=== PATIENT | female | born 1995 | race Caucasian/White ===

== ENCOUNTER 2019-03-05 14:58 | Observation (INO) ==
[2019-03-05] MEDS ORDERED: NORMAL SALINE 1,000 ML IV ONE (16:48)
[2019-03-05] MEDS ORDERED: PROCHLORPERAZINE EDISYLATE 5 MG/ML VIAL IV ONE (16:48)
[2019-03-05 17:08] LABS: Hematocrit 39.4 % (37.0-47.0); Hemoglobin 13.1 gm/dL (12.5-16.0); Mean Corpuscular Hemoglobin 32.3 pg (27-31); Mean Corpuscular Hgb Conc 33.2 g/dl (32-36); Neutrophil % 77.8 % (42-75.0); Platelet Count 303 K/mm3 (150-450); Red Blood Count 4.06 M/mm3 (4.2-5.4); Red Cell Distribution Width 12.7 % (11.5-14.0); White Blood Count 6.4 K/mm3 (4.0-10.5)
[2019-03-05 17:19] LABS: Albumin * 3.8 gm/dl (3.4-5.0); BUN/Creatinine Ratio 9.5 (9.0-21.6); Bilirubin, Total 0.4 mg/dL (0.0-1.1); Ca. Corrected For Albumin 9.2 mg/dL (8.4-10.2); Calcium * 9.4 mg/dL (7.9-10.9); Total Protein 7.6 gm/dL (6.2-8.2)
[2019-03-05 17:22] LABS: Urine Appearance Cloudy (CLEAR); Urine Bilirubin Negative (NEGATIVE); Urine Color Yellow
[2019-03-05 17:23] LABS: Urine Blood 250 /ul (NEGATIVE); Urine Ketone Negative (NEGATIVE); Urine pH 7.5 pH (5.0-7.0)
[2019-03-05 17:24] LABS: Urine Bacteria 4+; Urine Nitrite Negative (NEGATIVE); Urine Protein 100 mg/dL (NEGATIVE); Urine RBC >50 /hpf (0-5); Urine Urobilinogen Normal (NORMAL); Urine WBC >50 /hpf (0-5)
[2019-03-05 17:29] LABS: Anion Gap 20.7 mmol/L (6.8-13.8); Carbon Dioxide 17.6 mmol/L (24-32.6)
[2019-03-05 17:30] LABS: Potassium 4.3 mmol/L (3.4-4.6)
[2019-03-05] MEDS ORDERED: cefTRIAXone SODIUM 1,000 MG/100 ML BAG IV ONE (17:31)
[2019-03-05] MEDS ORDERED: MORPHINE SULFATE 2 MG/ML DISP.SYRIN IV ONE (17:54)
--- NOTE | 2019-03-05 18:30 | HP ---
Chief Complaint - Chief Complaint Date of Service: 03/05/19 Time of Service: 18:00 Chief Complaint: Nausea, vomiting, abdominal pain and back pain x1 day History of Present Illness: 24-year-old female with a past medical history of spina bifida, scoliosis, kidney failure status post urostomy, hydrocephalus status post LP shunt acute presents from home with complaints of nausea, vomiting, back pain and abdominal pain. She states she had a urostomy placed because because of she had her bladder removed recurrent UTIs. She states she gets a kidney infection every other month. She is found to have an elevated creatinine of 2.6. She states her baseline creatinine is 1.8. Urine is positive for leukocyte esterase and WBC. She will be admitted for pyelonephritis and GIOVANA. 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 Smoking Status Never smoker Have you smoked in the past 12 No months Alcohol Use none Drug Use none No Social History Section defined Review Of Systems (GEN) - Review of Systems Generalized/Overall Review: Absent: Chills, Fever Respiratory: Absent: Shortness of Breath Cardiac: Absent: Chest Pain Abdominal: Present: Nausea, Vomiting, Abdominal Pain Musculoskeletal: Present: Back Pain Misc: All systems neg except as marked Immunizations: IMMUNIZATION HX Immunizations Up to Date Yes History of Influenza Vaccine Yes Hx Pneumococcal Vaccination Yes Allergies/Adverse Reactions: Allergies Allergy/AdvReac Type Severity Reaction Status Date / Time chlorhexidine Allergy Severe Itching Verified 03/05/19 20:42 metoclopramide [From Reglan] Allergy Severe Swelling Verified 03/05/19 20:42 of Tongue latex Allergy Intermediate Other Verified 03/05/19 20:42 aspirin AdvReac Severe Other Verified 03/05/19 20:42 vasoline AdvReac Severe Itching Uncoded 03/05/19 20:42 Home Medications: HOME MEDICATIONS Acetaminophen/Diphenhydramine [Tylenol Pm Ex-Strength Caplet] 2 ea PO HS 03/05/19 [Last Taken Unknown] Amitriptyline HCl [Elavil] 75 mg PO HS 03/05/19 [Last Taken 03/04/19] Calcitriol 0.25 mcg PO DAILY 03/05/19 [Last Taken 03/04/19] Calcium Carbonate [Calcium] 500 mg PO TID 03/05/19 [Last Taken 03/04/19] Cyclobenzaprine HCl 10 mg PO BID 03/05/19 [Last Taken 03/04/19] Famotidine 20 mg PO BID 03/05/19 [Last Taken 03/04/19] Ferrous Sulfate 325 mg PO BID 03/05/19 [Last Taken 03/04/19] Hydrochlorothiazide 12.5 mg PO DAILY 03/05/19 [Last Taken 03/04/19] Melatonin 5 mg PO HS 03/05/19 [Last Taken 03/04/19] Nitrofurantoin Macrocrystal [Nitrofurantoin] 100 mg PO DAILY 03/05/19 [Last Taken 03/04/19] Progesterone, Micronized [Progesterone] 100 mg PO HS 03/05/19 [Last Taken 03/04/19] Promethazine HCl 25 mg PO .Q4H PRN 03/05/19 [Last Taken 03/04/19] Sodium Bicarbonate 1,300 mg PO DAILY 03/05/19 [Last Taken 03/04/19] Topiramate [Topamax] 25 mg PO BID 03/05/19 [Last Taken 03/04/19] diphenhydrAMINE HCL [Benadryl] 50 mg PO HS 03/05/19 [Last Taken 03/04/19] Pantoprazole Sodium 40 mg PO BID 03/06/19 [Last Taken 03/04/19] Exam - Exam Vital Signs: Vital Signs - Last Taken Temp 37.4 C 03/05/19 16:18 Pulse 123 H 03/05/19 16:18 Resp 18 03/05/19 16:18 BP 129/91 H 03/05/19 16:18 Pulse Ox 100 03/05/19 16:18 Constitutional: Present: Alert, Cooperative, Well developed, Well nourished, No distress ENT Exam: Present: hearing grossly normal Eye Exam: bilateral eye: normal inspection, PERRL Neck: Present: supple, trachea midline. Absent: lymphadenopathy (R), lymphadenopathy (L) Back Exam: Present: normal inspection, no vertebral tenderness, CVA tenderness (R), CVA tenderness (L) Respiratory: Present: lungs clear, no respiratory distress, no accessory muscle use, No wheezing. Absent: crackles, rhonchi Cardiovascular/Chest: Present: normal peripheral pulses, regular rate, rhythm, no murmur Peripheral Pulses: dorsalis-pedis (R): 1+, dorsalis-pedis (L): 1+ Abdomen: Present: Normal bowel sounds, soft, tender - Suprapubic Extremity: Present: no pedal edema, other - Right leg brace in place Skin Exam: Present: normal color, warm/dry Neurologic: Present: alert, normal mood/affect Appearance: Present: appropriate appearance, appropriate insight Eye contact: Present: cooperative, good eye contact Thoughts: Present: normal thought pattern, normal mood /affect Diagnostic Studies: Abnormal Lab Results 03/05/19 03/05/19 03/05/19 Range/Units 17:01 17:01 17:05 RBC 4.06 L (4.2-5.4) M/mm3 MCH 32.3 H (27-31) pg Neutrophils % 77.8 H (42-75.0) % Lymphocytes % 17.0 L (20-51) % Basophils % 1.1 H (0.0-1.0) % Lymphocytes # 1.09 L (1.5-3.5) k/mm3 Carbon Dioxide 17.6 L (24-32.6) mmol/L Anion Gap 20.7 H (6.8-13.8) mmol/L BUN 25 H (3-23) mg/dL Creatinine 2.62 H (0.4-1.4) mg/dL Est GFR (Non-Af Amer) 23 L (60-130) mL/min ALT 13 L (19-67) U/L Urine Protein 100 H (NEGATIVE) mg/dL Urine Blood 250 H (NEGATIVE) /ul Prot Sulfosalicylic Acd 4+ H (0) mg/dL Ur Leukocyte Esterase 500 H (NEGATIVE) /ul Urine RBC >50 H (0-5) /hpf Urine WBC >50 H (0-5) /hpf Urine Bacteria 4+ H (NONE) Laboratory Results WBC 6.4 K/mm3 (4.0-10.5) 03/05/19 17:01 RBC 4.06 M/mm3 (4.2-5.4) L 03/05/19 17:01 Hgb 13.1 gm/dL (12.5-16.0) 03/05/19 17:01 Hct 39.4 % (37.0-47.0) 03/05/19 17:01 MCV 97.0 fl (78-100) 03/05/19 17:01 MCH 32.3 pg (27-31) H 03/05/19 17:01 MCHC 33.2 g/dl (32-36) 03/05/19 17:01 RDW 12.7 % (11.5-14.0) 03/05/19 17:01 Plt Count 303 K/mm3 (150-450) 03/05/19 17:01 MPV 10.0 fl (8-12.5) 03/05/19 17:01 Immature Gran % (Auto) 0.20 % (0.001-0.429) 03/05/19 17: Immature Gran # (Auto) 0.01 K/mm3 (0.000-0.0310) 03/05/19 17:01 77.8 % (42-75.0) H 03/05/19 17:01 17.0 % (20-51) L 03/05/19 17:01 3.7 % (0.0-9) 03/05/19 17:01 0.2 % (0.0-3.0) 03/05/19 17:01 1.1 % (0.0-1.0) H 03/05/19 17:01 Nucleated RBC % 0.0 k/mm3 (0-1) 03/05/19 17:01 5.0 K/mm3 (1.3-6.0) 03/05/19 17:01 1.09 k/mm3 (1.5-3.5) L 03/05/19 17:01 0.2 k/mm3 (0.0-1.0) 03/05/19 17:01 0.0 k/mm3 (0.0-0.7) 03/05/19 17:01 Absolute Basophils 0.1 k/mm3 (0.0-0.1) 03/05/19 17:01 Sodium 138 mmol/L (132-142) 03/05/19 17:01 138 mmol/L (130-142) 03/05/19 17:01 Potassium 4.3 mmol/L (3.4-4.6) 03/05/19 17:01 Chloride 104 mmol/L (97-106) 03/05/19 17:01 Carbon Dioxide 17.6 mmol/L (24-32.6) L 03/05/19 17:01 20.7 mmol/L (6.8-13.8) H 03/05/19 17:01 BUN 25 mg/dL (3-23) H 03/05/19 17:01 2.62 mg/dL (0.4-1.4) H 03/05/19 17:01 Est GFR (Non-Af Amer) 23 mL/min (60-130) L 03/05/19 17:01 9.5 (9.0-21.6) 03/05/19 17:01 84 mg/dL (70-110) 03/05/19 17:01 1.1 mmol/L (0.4-2.0) 03/05/19 17:01 Calcium 9.4 mg/dL (7.9-10.9) 03/05/19 17:01 Calcium Adj for Albumin 9.2 mg/dL (8.4-10.2) 03/05/19 17:01 0.4 mg/dL (0.0-1.1) 03/05/19 17:01 AST 29 U/L (0-48) 03/05/19 17:01 ALT 13 U/L (19-67) L 03/05/19 17:01 109 U/L (50-170) 03/05/19 17:01 7.6 gm/dL (6.2-8.2) 03/05/19 17:01 3.8 gm/dl (3.4-5.0) 03/05/19 17:01 229 U/L (73-393) 03/05/19 17:01 Serum HCG, Qual Negative (NEGATIVE) 03/05/19 17:01 Yellow 03/05/19 17:05 Cloudy (CLEAR) 03/05/19 17:05 7.5 pH (5.0-7.0) 03/05/19 17:05 Ur Specific [place] 1.020 SP.GR. (1.005-1.010) 03/05/19 17:05 100 mg/dL (NEGATIVE) H 03/05/19 17:05 Negative mg/dL (NEGATIVE) 03/05/19 17:05 Negative mg/dL (NEGATIVE) 03/05/19 17:05 250 /ul (NEGATIVE) H 03/05/19 17:05 Negative (NEGATIVE) 03/05/19 17:05 Negative mg/dl (NEGATIVE) 03/05/19 17:05 Prot Sulfosalicylic Acd 4+ mg/dL (0) H 03/05/19 17:05 Normal EU/dl (NORMAL) 03/05/19 17:05 Ur Leukocyte Esterase 500 /ul (NEGATIVE) H 03/05/19 17:05 >50 /hpf (0-5) H 03/05/19 17:05 >50 /hpf (0-5) H 03/05/19 17:05 Ur Epithelial Cells None seen /hpf (0-5) 03/05/19 17:05 4+ (NONE) H 03/05/19 17:05 Culture to follow 03/05/19 17:05 Assessment/Plan - Narrative Narrative: 24-year-old female with a past medical history of spina bifida, scoliosis, kidney failure status post urostomy, hydrocephalus status post LP shunt acute presents from home with complaints of nausea, vomiting, back pain and abdominal pain. She states she had a urostomy placed because because of she had her bladder removed recurrent UTIs. She states she gets a kidney infection every other month. She is found to have an elevated creatinine of 2.6. She states her baseline creatinine is 1.8. Urine is positive for leukocyte esterase and WBC. She will be admitted for pyelonephritis and GIOVANA. - Assessment/Plan (1) Pyelonephritis Assessment: Continue ceftriaxone, pain management, and monitor CMP. Follow-up urine culture. Problem: Acute (2) Acute kidney injury superimposed on chronic kidney disease Assessment: Continue with IV fluid hydration, monitor CMP. Problem: Acute
[2019-03-05] MEDS ORDERED: NORMAL SALINE 1,000 ML IV PRN (18:42)
[2019-03-05] MEDS ORDERED: ONDANSETRON HCL/PF 2 MG/ML VIAL IV PRN (18:43)
--- NOTE | 2019-03-05 19:06 | ERNOTE ---
Abdominal HPI - Narrative Date of Service: 03/05/19 - General Chief Complaint: Nausea/Vomiting Time Seen by Provider: 03/05/19 16:42 Source: patient Exam Limitations: no limitations - Immun/Allergies/Home Medications Immunizatons: IMMUNIZATION HX Immunizations Up to Date Yes History of Influenza Vaccine Yes Hx Pneumococcal Vaccination Yes Allergies/Adverse Reactions: Allergies chlorhexidine Allergy (Severe, Verified 03/05/19 16:17) Itching metoclopramide [From Reglan] Allergy (Severe, Verified 03/05/19 16:17) Swelling of Tongue latex Allergy (Intermediate, Verified 03/05/19 16:17) Other aspirin Adverse Reaction (Severe, Verified 03/05/19 16:17) Other vasoline Adverse Reaction (Severe, Uncoded 03/05/19 16:17) Itching - History of Present Illness Narrative: patient presents to the ED for concern of "kidney infection". She relates that since 6am she has vomited 12 times without diarrhea and had feeling of fever with abdominal and bilateral flank pain. She gets this with kidney infections. The pain in her flank bilaterally is severe. Nothing makes it better or worse. 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 No CP or SOB. Decreased urine output today. She normally goes to [place] or the [place] as she lives in [place]. Timing: constant Quality: severe Activities at Onset: none Modifying Factors - (Improves): Present: other - nothing Modifying Factors - (Worsens): Present: vomiting Associated Symptoms: Present: nausea, vomiting. Absent: diarrhea-gross blood, diarrhea-mucous, fever/chills, shortness of breath Prior Abdominal Problems: Present: similar symptoms Prior Treatment: Absent: currently on antibiotics Review of Systems - Review of Systems Constitutional: Absent: fever ENT: Absent: sore throat Respiratory: Absent: shortness of breath Cardiology: Absent: chest pain Gastrointestinal/Abdominal: Present: See HPI All Other Systems: All systems neg except as marked Medical History (Updated 03/05/19 @ 18:36 by Rena Campbell MD) Hydrocephalus Kidney failure Scoliosis Spina bifida Surgical History: Surgical History (Updated 03/05/19 @ 17:04 by Tabby Kohler RN) H/O knee surgery right-ACL, and ligaments History of ankle surgery bilateral History of hip surgery hinge History of urostomy Previous back surgery CLosed gap from Spina bifidia Jd in tibia or fibula 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 Smoking Status Never smoker Have you smoked in the past 12 No months Alcohol Use none Drug Use none No Social History Section defined Physical Exam - Physical Exam General Appearance: Present: alert, no apparent distress Head Exam: Present: normal inspection, no evidence of injury Eye Exam: Normal inspection: bilateral, PERRL: bilateral Ears, Nose, Throat: Present: dry mucous membranes Neck: Present: normal inspection Respiratory: Present: no respiratory distress, normal breath sounds, no accessory muscle use, lungs clear Cardiovascular/Chest: Present: tachycardia Gastrointestinal/Abdominal: Present: normal bowel sounds, soft, other - mild diffuse tenderness, no peritoneal signs\\ Back Exam: Present: CVA tenderness (R), CVA tenderness (L) Extremity Exam: Present: other - brace chronically right leg Neurological Exam: Present: alert, other - spina bifida, no acute motor deficits are noted Skin Exam: Present: normal color, warm/dry Progress - Results and Orders Patient's Lab Results:: I have reviewed the patient's lab results. - Vital Signs Patient's Vital Signs:: I have reviewed the patient's vital signs. Vital Signs: Vital Signs 03/05/19 16:18 Temperature 37.4 C Pulse Rate 123 H Respiratory Rate 18 Blood Pressure 129/91 H O2 Sat by Pulse Oximetry 100 - Progress/Reassessment Chief Complaint: Nausea/Vomiting Progress Note-Subjective: 03/05/19 19:02 IV fluids and IV ABx given. She has GIOVANA here. She thinks her Cr normally runs in the 1.7 range. She had labs at [facility] yesterday but I cannot get ahold of those after several attempts. I have to assume her GIOVANA is from pyelo and dehydration. I spoke to Dr Diaz who saw the patient in the ED and will admit the patient. Departure Clinical Impression: Pyelonephritis, Dehydration, GIOVANA (acute kidney injury), Recurrent vomiting - Departure Disposition: Still a patient Condition: Fair
[2019-03-05] MEDS ORDERED: diphenhydrAMINE HCL 25 MG CAPSULE PO ONE (21:23)
[2019-03-05] MEDS ORDERED: AMITRIPTYLINE HCL 25 MG TABLET PO SCH (21:24)
[2019-03-05] MEDS: HYDROmorphone HCL 1 MG/ML DISP.SYRIN IV PRN (21:40)
[2019-03-06] MEDS: HYDROmorphone HCL 1 MG/ML DISP.SYRIN IV PRN ×4 (01:43→14:18)
[2019-03-06] MEDS: CALCIUM CARBONATE 500 MG TAB.CHEW PO PRN ×2 (02:33→10:30)
[2019-03-06 06:17] LABS: Hematocrit 36.2 % (37.0-47.0); Mean Cell Volume 97.3 fl (78-100); Mean Corpuscular Hemoglobin 32.3 pg (27-31); Mean Corpuscular Hgb Conc 33.1 g/dl (32-36); Mean Platelet Volume 9.8 fl (8-12.5); Neutrophil # 2.5 K/mm3 (1.3-6.0); Neutrophil % 55.5 % (42-75.0); Platelet Count 242 K/mm3 (150-450); Red Blood Count 3.72 M/mm3 (4.2-5.4); Red Cell Distribution Width 12.6 % (11.5-14.0); White Blood Count 4.4 K/mm3 (4.0-10.5)
[2019-03-06 06:31] LABS: Albumin * 3.3 gm/dl (3.4-5.0); Anion Gap 19.3 mmol/L (6.8-13.8); BUN/Creatinine Ratio 9.8 (9.0-21.6); Bilirubin, Total 0.3 mg/dL (0.0-1.1); Ca. Corrected For Albumin 8.5 mg/dL (8.4-10.2); Calcium * 8.3 mg/dL (7.9-10.9); Carbon Dioxide 17.7 mmol/L (24-32.6); Total Protein 6.4 gm/dL (6.2-8.2)
[2019-03-06] MEDS ORDERED: diphenhydrAMINE HCL 25 MG CAPSULE PO ONE (07:30)
[2019-03-06] MEDS ORDERED: POTASSIUM BICARBONATE/CIT AC 25 MEQ TABLET.EFF PO ONE (10:09)
[2019-03-06] MEDS ORDERED: POTASSIUM CHLORIDE 20 MEQ TABLET.SA PO ONE (12:18)
--- NOTE | 2019-03-06 12:58 | DS ---
(1) Pyelonephritis Problem: Acute (2) Acute kidney injury superimposed on chronic kidney disease Problem: Acute (3) Hypokalemia Problem: Acute (4) Dehydration Problem: Resolved (5) Recurrent vomiting Problem: Resolved Description of Stay: 24-year-old female with a past medical history of spina bifida, scoliosis, kidney failure status post urostomy, hydrocephalus status post LP shunt acute presents from home with complaints of nausea, vomiting, back pain and abdominal pain. She states she had a urostomy placed because because of she had her bladder removed recurrent UTIs. She states she gets a kidney infection every other month. She is found to have an elevated creatinine of 2.6. She states her baseline creatinine is 1.8. Urine is positive for leukocyte esterase and WBC. She will be admitted for pyelonephritis and GIOVANA. Her renal function improved with IV fluid hydration. The nausea and vomiting resolved and tolerate diet. Urine culture growing gram-negative bacilli. I will send her home on ciprofloxacin for 6 more days. She also developed hypokalemia and her potassium was repleted. She should obtain a follow-up chemistry with her primary care physician in 1 week. Follow-up with her primary care physician and urologist in 1 week. Procedures Performed: none Results and Findings: Pending Mircobiology Results 03/05/19 16:45 Urine,Clean Catch Urine Culture - Preliminary Gram Negative Bacilli Lab Pending Results 03/05/19 17:01: WBC 6.4, RBC 4.06 L, Hgb 13.1, Hct 39.4, MCV 97.0, MCH 32.3 H, MCHC 33.2, RDW 12.7, Plt Count 303, MPV 10.0, Immature Gran % (Auto) 0.20, Immature Gran # (Auto) 0.01, Neutrophils % 77.8 H, Lymphocytes % 17.0 L, Monocytes % 3.7, Eosinophils % 0.2, Basophils % 1.1 H, Nucleated RBC % 0.0, Neutrophils # 5.0, Lymphocytes # 1.09 L, Monocytes # 0.2, Eosinophils # 0.0, Absolute Basophils 0.1 03/05/19 17:01: Sodium 138, Plasma Sodium 138, Potassium 4.3, Chloride 104, Carbon Dioxide 17.6 L, Anion Gap 20.7 H, BUN 25 H, Creatinine 2.62 H, Est GFR (Non-Af Amer) 23 L, BUN/Creatinine Ratio 9.5, Random Glucose 84, Calcium 9.4, Calcium Adj for Albumin 9.2, Total Bilirubin 0.4, AST 29, ALT 13 L, Alkaline Phosphatase 109, Total Protein 7.6, Albumin 3.8, Lipase 229 03/05/19 17:01: Lactic Acid, Venous 1.1 03/05/19 17:01: Serum HCG, Qual Negative 03/05/19 17:05: Urine Color Yellow, Urine Appearance Cloudy, Urine pH 7.5, Ur Specific [place] 1.020, Urine Protein 100 H, Urine Glucose (UA) Negative, Urine Ketones Negative, Urine Blood 250 H, Urine Nitrate Negative, Urine Bilirubin Negative, Prot Sulfosalicylic Acd 4+ H, Urine Urobilinogen Normal, Ur Leukocyte Esterase 500 H, Urine RBC >50 H, Urine WBC >50 H, Ur Epithelial Cells None seen, Urine Bacteria 4+ H, Urine Culture Comments Culture to follow 03/06/19 05:20: WBC 4.4 D, RBC 3.72 L, Hgb 12.0 L, Hct 36.2 L, MCV 97.3, MCH 32.3 H, MCHC 33.1, RDW 12.6, Plt Count 242, MPV 9.8, Immature Gran % (Auto) 0.50 H, Immature Gran # (Auto) 0.02, Neutrophils % 55.5, Lymphocytes % 33.9, Monocytes % 7.9, Eosinophils % 1.1, Basophils % 1.1 H, Nucleated RBC % 0.0, Neut rophils # 2.5, Lymphocytes # 1.50, Monocytes # 0.4, Eosinophils # 0.1, Absolute Basophils 0.1 03/06/19 05:20: Sodium 139, Plasma Sodium 139, Potassium 3.0 L D, Chloride 105, Carbon Dioxide 17.7 L, Anion Gap 19.3 H, BUN 23, Creatinine 2.35 H, Est GFR (Non-Af Amer) 27 L, BUN/Creatinine Ratio 9.8, Random Glucose 78, Calcium 8.3, Calcium Adj for Albumin 8.5, Total Bilirubin 0.3, AST 9, ALT 10 L, Alkaline Phosphatase 90, Total Protein 6.4, Albumin 3.3 L Discharge Location: Home - She is Disposition: Home self-care Condition: Fair Discharge Activity: Activity as tolerated Discharge Diet: General/regular food Prescriptions (Any new or edited meds): Ciprofloxacin HCl 500 mg PO Q12H #12 tab Complete Home Medications List: Complete Home Medication List: Acetaminophen/Diphenhydramine [Tylenol Pm Ex-Strength Caplet] 2 ea PO HS 03/05/19 Amitriptyline HCl [Elavil] 75 mg PO HS 03/05/19 Calcitriol 0.25 mcg PO DAILY 03/05/19 Calcium Carbonate [Calcium] 500 mg PO TID 03/05/19 Cyclobenzaprine HCl 10 mg PO BID 03/05/19 Famotidine 20 mg PO BID 03/05/19 Ferrous Sulfate 325 mg PO BID 03/05/19 Hydrochlorothiazide 12.5 mg PO DAILY 03/05/19 Melatonin 5 mg PO HS 03/05/19 Nitrofurantoin Macrocrystal [Nitrofurantoin] 100 mg PO DAILY 03/05/19 Progesterone, Micronized [Progesterone] 100 mg PO HS 03/05/19 Promethazine HCl 25 mg PO .Q4H PRN 03/05/19 Sodium Bicarbonate 1,300 mg PO DAILY 03/05/19 Topiramate [Topamax] 25 mg PO BID 03/05/19 diphenhydrAMINE HCL [Benadryl] 50 mg PO HS 03/05/19 Ciprofloxacin HCl 500 mg PO Q12H #12 tab 03/06/19 Pantoprazole Sodium 40 mg PO BID 03/06/19
[2019-03-06] MEDS ORDERED: HEPARIN SOD.,PORCINE 100 UNITS/ML ONE (14:16)
[2019-03-06] MEDS ORDERED: HEPARIN SOD.,PORCINE 100 UNITS/ML IV ONE (14:22)
[2019-03-06 16:13] VITALS: BP 131/87
== END 2019-03-06 15:30 | disposition home or self-care (01) ==
LOC: ER 14:58 → MS 14:58
PROVIDERS: ADMIT Internal Medicine; ATTEND Internal Medicine
CPT/HCPCS: 36415; 80053; 81001; 83605; 83690; 84703; 85025; 87081; 87086; 96361; 96365; 96366; 96375; 99285; G0378